=== PATIENT | female | born 1935 | race Caucasian/White ===

== ENCOUNTER 2019-09-27 08:29 | Day surgery (SDC) | payer OTHER ==
[2019-09-23 14:48] VITALS: BMI 26.5
[2019-09-27 09:13] VITALS: TEMP 98.3
[2019-09-27] MEDS ORDERED: PROPOFOL 20 ML ONE ×2 (10:25)
[2019-09-27 11:03] VITALS: PULSE 66
[2019-09-27 11:33] VITALS: BP 130/74
--- NOTE | 2019-09-29 17:27 | PATH ---
Surgical Pathology Report Patient Name: SUNG [facility]DU[facility]. Rec. #: [id number] /Age/Gender: 1935 (Age: 83) / F Account: [id number] Location: [facility] Taken: 09/27/2019 Received: 09/27/2019 Reported: 09/29/2019 Physicians: Carlos Mauro M.D. Specimen(s) Received A: SECOND PORTION DUODENUM B: ANTRUM C: ESOPHAGUS Clinical History GERD Postoperative diagnosis: Gastritis, hiatal hernia Final Diagnosis A. DUODENUM, SECOND PORTION, BIOPSY: DUODENAL MUCOSA WITHOUT SIGNIFICANT PATHOLOGIC FINDINGS. B. GASTRIC ANTRUM, BIOPSY: GASTRIC ANTRAL MUCOSA WITH MILD CHRONIC GASTRITIS. IMMUNOHISTOCHEMICAL STAIN FOR H. PYLORI IS NEGATIVE. C. ESOPHAGUS, BIOPSY: SQUAMOUS MUCOSA WITH CHANGES OF MILD REFLUX TYPE ESOPHAGITIS. Electronically Signed Niesha Tai M.D. Gross Description A. Received in formalin, labeled "biopsy second portion of duodenum" are 3 matthews, irregular portions of soft tissue ranging from 0.1-0.5 cm. in greatest dimension. The specimens are submitted in toto in one cassette. B. Received in formalin, labeled "biopsy gastric antrum" are 2 matthews, irregular portions of soft tissue measuring 0.4 and 0.5 cm. in greatest dimension. The specimens are submitted in toto in one cassette. C. Received in formalin, labeled "biopsy esophagus" is a matthews, irregular portion of soft tissue measuring 0.2 cm. in greatest dimension. The specimen is submitted in toto in one cassette. 09/28/2019 saudi09/28/2019
== END 2019-09-27 11:15 | disposition home or self-care (01) ==
LOC: FASU-ENDO 08:29
PROVIDERS: ATTEND Internal Medicine Gastroenterology
PROC: 0DB68ZX Excision of Stomach, Via Natural or Artificial Opening Endoscopic, Diagnostic (ICD-10-PCS; 2019-09-27)
PROC: 0DB58ZX Excision of Esophagus, Via Natural or Artificial Opening Endoscopic, Diagnostic (ICD-10-PCS; 2019-09-27)
PROC: 0DB98ZX Excision of Duodenum, Via Natural or Artificial Opening Endoscopic, Diagnostic (ICD-10-PCS; principal; 2019-09-27 10:24)
DX: K44.9 Diaphragmatic hernia without obstruction or gangrene (principal); K21.9 Gastro-esophageal reflux disease without esophagitis; K29.50 Unspecified chronic gastritis without bleeding
CPT/HCPCS: 88305-TC; 88342-TC